=== PATIENT | male | born 1960 | race Caucasian/White ===

== ENCOUNTER 2022-08-01 07:59 | Outpatient (CLI) | payer OTHER, SELFPAY ==
--- NOTE | ~2022-08-01 | US_ITS ---
EXAMINATION: US arterial ankle brachial ind DATE: 08/01/2022 08:45 INDICATION: Bilateral lower limb pain and claudication TECHNIQUE: Segmental pressures and plethysmographic and Doppler waveforms of the brachial and lower e xtremity arteries were obtained. COMPARISON: None. FINDINGS: Right and left brachial artery pressures of 111 mm Hg and 117 mm Hg, respectively, are concordant (no rmal difference <= 30 mmHg). The right ankle-brachial index (CORETTA) is 1.27 (normal >= 0.9-1.0). The right great toe-brachial index (TBI) is 0.80 (normal >= 0.65). Arterial Doppler waveforms are biphasic with brisk systolic upstrokes at both right posterior tibial and dorsalis pedis arteries. The left CORETTA is 1.35. The left TBI is 0.89. Arterial Doppler waveforms are biphasic with brisk systol ic upstrokes at both left posterior tibial and dorsalis pedis arteries. IMPRESSION: 1. No significant arterial occlusive disease with normal bilateral ABIs and TBIs. Reviewed, dictated and finalized at location A. IMPRESSION: 1. No significant arterial occlusive disease with normal bilateral ABIs and TBI s.
== END 2022-08-01 08:00 | disposition home or self-care (01) ==
PROVIDERS: PCP Family Medicine; Visit Provider Nurse Practitioner Family
DX: M79.661 Pain in right lower leg (principal); M79.662 Pain in left lower leg
CPT/HCPCS: 93922